=== PATIENT | male | born 1965 | race Caucasian/White ===

== ENCOUNTER 2017-02-24 08:37 | Inpatient (IN) | payer MEDICAID, OTHER ==
[~2017-02-24] VITALS: Ht 165.1 cm; Wt 147.4 kg
[~2017-02-24 08:37] MED LIST: AMLO5TAB2 PO; ASPI81TA31 PO; HYDR-3326 PO; Metoprolol Tartrate PO
[2017-02-24] MEDS ORDERED: NEOMY/BACITRA/POLYMYXIN B OINT UD PACKET TP ONE ×2 (09:00→09:27)
[2017-02-24] MEDS ORDERED: LOSARTAN POTASSIUM 25 MG TABLET PO SCH (09:00)
[2017-02-24] MEDS ORDERED: VANCOMYCIN IV 1,000 MG in IV DEXTROSE 5% 250 ML IV ONE (09:30)
[2017-02-24 09:31] LABS: CREATININE 1.2 mg/dL (0.6-1.3); POTASSIUM 3.4 mmol/L (3.5-5.1)
[2017-02-24 09:38] LABS: BASOPHILS # (AUTO) 0.1 K/uL (0.0-8.0); BASOPHILS % (AUTO) 0.9 % (0.0-2.0); EOSINOPHILS # (AUTO) 0.2 K/uL (0.0-0.7); EOSINOPHILS % (AUTO) 2.4 % (0.0-7.0); HEMATOCRIT 44.7 % (40-50); HEMOGLOBIN 14.9 G/DL (14.0-18.0); LYMPHOCYTES # (AUTO) 1.8 K/UL (0.8-4.8); LYMPHOCYTES % (AUTO) 24.6 % (20.5-51.5); MEAN CORPUSCULAR HEMOGLOBIN 27.9 UUG (27.0-31.0); MEAN CORPUSCULAR HGB CONC 33 g/dL (32.0-37.0); MONOCYTES # (AUTO) 0.9 K/UL (0.1-1.30); MONOCYTES % (AUTO) 12.9 % (0.0-11.0); NEUTROPHILS # (AUTO) 4.2 K/UL (1.8-8.9); NEUTROPHILS % (AUTO) 59.2 % (38.5-71.5); PLATELET COUNT (AUTO) 255 K/UL (150-450); RED BLOOD CELL COUNT(AUTO) 5.32 MIL/UL (4.7-6.1); WHITE BLOOD COUNT (AUTO) 7.3 K/UL (4.0-11.2)
[2017-02-24 09:42] LABS: BILIRUBIN,DIRECT 0.1 mg/dL (0.0-0.2); BILIRUBIN,TOTAL 0.4 mg/dL (0.2-1.0); TOTAL PROTEIN, SERUM 7.1 g/dL (6.4-8.2)
[2017-02-24] MEDS ORDERED: VANCOMYCIN IV 200 ML ONE (09:44)
[2017-02-24] MEDS ORDERED: LABETALOL HCL 100 MG/20 ML VIAL IV STA (12:15)
--- NOTE | 2017-02-24 12:26 | NUR ---
pt transfered to floor in stable condition. transfered delayed to maintaing safe bp for transfer
[2017-02-24 13:00] VITALS: BP 147/103
[2017-02-24] MEDS ORDERED: HYDROCODONE/APAP 5-325MG TABLET PO PRN (14:00)
[2017-02-24] MEDS ORDERED: ZOLPIDEM 5 MG TABLET PO PRN (14:00)
[2017-02-24] MEDS ORDERED: ACETAMINOPHEN 325 MG TABLET PO PRN (14:00)
[2017-02-24] MEDS ORDERED: MAGNESIUM HYDROXIDE 30 ML LIQUID UDC PO PRN (14:00)
[2017-02-24] MEDS ORDERED: ONDANSETRON 4 MG/2 ML VIAL IV PRN (14:00)
[2017-02-24] MEDS ORDERED: MORPHINE SULFATE 2 MG/1 ML DISP.SYRIN IV PRN (14:00)
--- NOTE | 2017-02-24 15:18 | NUR ---
CLINICAL PHARMACY NOTE:VANCOMYCIN DOSING Request for vancomycin dosing on 51 y/o male 325lbs for cellulitis of legs Temp 98.8 BUN 14 Scr 1.2 WBC 7.3 received 1gm vancomycin in ER at 0932 Continue vancomycin 1500mg ivpb q12h estimated trough 15. Trough level ordered prior to 4th dose of 1500mg on 02/26. Will continue to monitor
[2017-02-24 15:33] VITALS: BP 184/109
--- NOTE | 2017-02-24 15:40 | NUR ---
PT'S BP 184/109, PER DR. FONG GIVE CLONIDINE 0.1 Q6H PRN FOR SBP >150
[2017-02-24] MEDS: CLONIDINE HCL 0.1 MG TABLET PO PRN (16:02)
[2017-02-24 19:00] VITALS: BP 180/119
--- NOTE | 2017-02-24 19:26 | NUR ---
End of shift note: pt is laying in bed comfortably. No s/s of respiratory distress noted, no pain noted. PT has his bilateral legs on pillow for comfort, wound is open to air, kept clean, Iv intact/patent. All safety needs are met.
[2017-02-24 20:00] VITALS: BP 180/119
--- NOTE | 2017-02-24 20:00 | NUR ---
RN NOTES: PATIENT RECEIVED IN STABLE CONDITION, NO COMPLAINS OF PAIN OR DISTRESS NOTED. WILL CONTINUE TO MONITOR.
[2017-02-24] MEDS: AMLODIPINE 5 MG TABLET PO SCH (20:40)
[2017-02-24] MEDS: METOPROLOL TARTRATE 50 MG TABLET PO SCH (20:40)
[2017-02-24] MEDS ORDERED: ENOXAPARIN SODIUM 40 MG/0.4 ML DISP.SYRIN SQ SCH (21:00)
[2017-02-24] MEDS: VANCOMYCIN IV 1,500 MG in IV DEXTROSE 5% 500 ML IV SCH (21:21)
[2017-02-25 00:03] VITALS: BP 151/105
[2017-02-25 01:30] VITALS: BP 145/94
[2017-02-25] MEDS: CLONIDINE HCL 0.1 MG TABLET PO PRN (02:09)
--- NOTE | 2017-02-25 02:10 | NUR ---
RN NOTES: PATIENT IS COMPLAINING OF DISCOMFORT IN THE CHEST.PATIENT'S BP:151/105 MMHG, HR:74 B/MIN,RR:20 B/MIN,O2 SAT:97%. EKG IS NEGATIVE .CATAPRES 0.1 MG IS GIVEN FOR THE ELEVATED BLOOD PRESSURE AND MORPHINE 2 MG ARE GIVEN UPON PATIENT'S REQUEST.CHARGE NURSE IS AWARE. 03:00 PATIENT IS RESTING DENIES ANY PAIN OR DISCOMFORT.TRPONIN TEST IS NEGATIVE, CHARGE NURSE IS AWARE. WILL CONTINUE TO MONITOR.
[2017-02-25 04:00] VITALS: BP 145/102
--- NOTE | 2017-02-25 06:52 | NUR ---
RN NOTES; PATIENT IS IN A STABLE CONDITION. NO COMPLAINS OF PAIN OR ACUTE DISTRESS NOTED. WILL ENDORSE IT TO AM SHIFT NURSE TO CONTINUE THE CARE.
[2017-02-25] MEDS ORDERED: PANTOPRAZOLE SODIUM 40 MG TABLET.DR PO SCH (07:00)
[2017-02-25 07:27] LABS: THYROID STIMULATING HORMONE 1.843 mIU/mL (0.358-3.740)
[2017-02-25 07:56] LABS: BILIRUBIN,TOTAL 0.3 mg/dL (0.2-1.0); CREATININE 1.3 mg/dL (0.6-1.3); MAGNESIUM 2.2 mg/dL (1.8-2.4); PHOSPHOROUS 3.6 mg/dL (2.5-4.9); POTASSIUM 3.5 mmol/L (3.5-5.1); TOTAL PROTEIN, SERUM 6.9 g/dL (6.4-8.2)
[2017-02-25 08:07] LABS: BASOPHILS # (AUTO) 0.1 K/uL (0.0-8.0); BASOPHILS % (AUTO) 0.8 % (0.0-2.0); EOSINOPHILS # (AUTO) 0.3 K/uL (0.0-0.7); HEMATOCRIT 44.8 % (40-50); HEMOGLOBIN 14.7 G/DL (14.0-18.0); LYMPHOCYTES # (AUTO) 2.4 K/UL (0.8-4.8); LYMPHOCYTES % (AUTO) 28.7 % (20.5-51.5); MEAN CORPUSCULAR HEMOGLOBIN 27.9 UUG (27.0-31.0); MEAN CORPUSCULAR HGB CONC 33 g/dL (32.0-37.0); MEAN CORPUSCULAR VOLUME 85.2 FL (82.0-92.0); MONOCYTES % (AUTO) 11.9 % (0.0-11.0); NEUTROPHILS # (AUTO) 4.5 K/UL (1.8-8.9); NEUTROPHILS % (AUTO) 54.6 % (38.5-71.5); PLATELET COUNT (AUTO) 246 K/UL (150-450); RED BLOOD CELL COUNT(AUTO) 5.26 MIL/UL (4.7-6.1); WHITE BLOOD COUNT (AUTO) 8.3 K/UL (4.0-11.2)
[2017-02-25] MEDS: METOPROLOL TARTRATE 50 MG TABLET PO SCH (08:15)
[2017-02-25] MEDS: AMLODIPINE 5 MG TABLET PO SCH (08:16)
[2017-02-25] MEDS: VANCOMYCIN IV 1,500 MG in IV DEXTROSE 5% 500 ML IV SCH (08:54)
[2017-02-25] MEDS ORDERED: ASPIRIN 81 MG TAB.CHEW PO SCH (09:00)
[2017-02-25] MEDS ORDERED: HYDROCHLOROTHIAZIDE 12.5 MG CAPSULE PO SCH (09:00)
[2017-02-25] MEDS ORDERED: LOSARTAN POTASSIUM 25 MG TABLET PO SCH (09:00)
[2017-02-25] MEDS ORDERED: METOPROLOL TARTRATE 25 MG TABLET PO ONE (11:20)
[2017-02-25] MEDS ORDERED: POTASSIUM CHLORIDE 20 MEQ TAB.PRT.SR PO ONE (11:30)
[2017-02-25 11:31] VITALS: BP 130/85
--- NOTE | 2017-02-25 13:03 | NUR ---
WOUND CARE CONSULT: PT PRESENTS WITH REDNESS TO BILATERAL LOWER LEGS AND HEALED AREA TO LEFT LOWER LEG. PT STATES THAT HIS SKIN BREAKS OPEN EASILY. RECOMMEND PROTECT AREA WITH MEPILEX AND ELEVATE LEGS. DISCUSSED WITH PT AND NURSING STAFF. WILL SEE PRN. CHATMAN IN AGREEMENT WITH PLAN OF CARE. Addendum: 02/25/17 at 1304 by KRISTOFER VEGA RN Amended: Links added.
--- NOTE | 2017-02-25 14:43 | NUR ---
CLINICAL PHARMACY NOTE:VANCOMYCIN DOSING To continue vancomycin dosing on 51 y/o male 325lbs for cellulitis of legs Temp 98 BUN 14 Scr 1.3 WBC 8.3 Continue vancomycin 1500mg ivpb q12h estimated trough 15. Trough level ordered prior to 4th dose of 1500mg on 02/26 @ 0830. Will check trough and adjust as appropriate. Will continue to monitor
[2017-02-25 15:13] VITALS: BP_SYST 130; BP_SYST 157; BP_DIAS 85; BP_DIAS 93
[2017-02-25] MEDS ORDERED: AMLO5TAB2 PO (17:17)
[2017-02-25] MEDS ORDERED: HYDR12.517 PO (17:17)
[2017-02-25] MEDS ORDERED: ASCO500C16 PO (17:17)
[2017-02-25] MEDS ORDERED: ZINC220C8 PO (17:17)
[2017-02-25] MEDS ORDERED: METO50TA3 PO (17:17)
[2017-02-25] MEDS ORDERED: SIMV20TA6 PO (17:17)
[2017-02-25] MEDS ORDERED: SULF1TAB48 PO (17:17)
[2017-02-25] MEDS ORDERED: ASPI81TA31 PO (17:17)
--- NOTE | 2017-02-25 17:47 | NUR ---
DISCHARGE NOTE: PT IS READY TO BE D/C, PT REFUSED PICTURES, EDUCATION FROM PHARMACIST. NO S/S OF RESPIRATORY DISTRESS NOTED, NO PAIN NOTED. PT LEFT VIA PRIVATE CAR WITH FRIEND, WOUND CARE IS DONE. EDUCATION PROVIDED.
[2017-02-25] MEDS ORDERED: METOPROLOL TARTRATE 50 MG TABLET PO SCH (21:00)
[2017-02-25] MEDS ORDERED: SIMVASTATIN 20 MG TABLET PO SCH (21:00)
== END 2017-02-25 17:45 | disposition home or self-care (01) | DRG 194 ==
LOC: ER 08:37 → TELE 11:56
PROVIDERS: ADMIT Internal Medicine; ATTEND Internal Medicine
DX: I11.0 Hypertensive heart disease with heart failure (principal); L03.115 Cellulitis of right lower limb; Z68.43 Body mass index [BMI] 50.0-59.9, adult; L03.116 Cellulitis of left lower limb; E66.01 Morbid (severe) obesity due to excess calories; I73.9 Peripheral vascular disease, unspecified; I50.32 Chronic diastolic (congestive) heart failure; Z88.0 Allergy status to penicillin; Z87.891 Personal history of nicotine dependence; I87.2 Venous insufficiency (chronic) (peripheral); R60.0 Localized edema; E87.6 Hypokalemia; R73.03 Prediabetes; B96.89 Other specified bacterial agents as the cause of diseases classified elsewhere
CPT/HCPCS: 36415; 70030-TC; 71010; 83735; 84100; 84443; 85025; 85730; 93005; 93307; 97161; A4663; J1650; J2270; J3370; J3490; J7050; J7060

== ENCOUNTER 2017-05-01 11:09 | Emergency (ER) | payer OTHER ==
[~2017-05-01] VITALS: Ht 162.6 cm; Wt 129.7 kg
[~2017-05-01 11:09] MED LIST changes: +ASCO500C16 PO; -HYDR-3326 PO; +HYDR12.517 PO; +METO50TA3 PO; -Metoprolol Tartrate PO; +SIMV20TA6 PO; +SULF1TAB48 PO; +ZINC220C8 PO
--- NOTE | 2017-05-01 11:40 | NUR ---
MSE DONE BY Kiara ACOSTA AT BEDSIDE.
[2017-05-01] MEDS ORDERED: HYDROCODONE/APAP 10-325 MG TABLET PO ONE (11:45)
[2017-05-01] MEDS ORDERED: CLINDAMYCIN HCL 150 MG CAPSULE PO ONE (11:45)
[2017-05-01] MEDS ORDERED: KETOROLAC TROMETHAMINE 30 MG INJ IM ONE (11:45)
[2017-05-01] MEDS ORDERED: CLINDAMYCIN HCL 150 MG CAPSULE ONE (11:55)
[2017-05-01] MEDS ORDERED: HYDROCODONE/APAP 10-325 MG TABLET ONE (11:55)
[2017-05-01] MEDS ORDERED: KETOROLAC TROMETHAMINE 30 MG INJ ONE (11:55)
--- NOTE | 2017-05-01 12:07 | NUR ---
Patient discharged to home in stable conditon. Written and verbal after care instructions given. Patient verbalizes understanding of instructions.
[2017-05-01 12:08] VITALS: BP 146/86
== END 2017-05-01 12:11 | disposition home or self-care (01) ==
LOC: ER 11:09
DX: K02.9 Dental caries, unspecified (principal); I10 Essential (primary) hypertension; Z88.0 Allergy status to penicillin; Z79.82 Long term (current) use of aspirin
CPT/HCPCS: 96372; 99283; A4663; J1885

== ENCOUNTER 2017-07-15 17:49 | Emergency (ER) | payer OTHER ==
[~2017-07-15] VITALS: Ht 165.1 cm; Wt 124.7 kg
--- NOTE | 2017-07-15 17:56 | NUR ---
Samantha bagley in ED - 07/15/17 at 1757 by TETE VU RENDON FOR PSYCH EVAL.
[2017-07-15] MEDS ORDERED: TDAP DIPH,PERTUSS,TET VAC/PF 0.5 ML DISP.SYRIN IM ONE ×2 (19:15→20:19)
[2017-07-15] MEDS ORDERED: NEOMY/BACITRA/POLYMYXIN B OINT UD PACKET TP ONE ×2 (19:15→20:19)
--- NOTE | 2017-07-15 19:16 | NUR ---
Received report from BERONICA Rouse. Assumed care of pt at this time. Pt resting in position of comfort for self. Family at bedside.
--- NOTE | 2017-07-15 20:37 | NUR ---
pt to ct via [place]
--- NOTE | 2017-07-15 20:59 | NUR ---
Pt [place]. Pt c/o severe BLE pain. Dr. Cabral notified of pt's pain and pt's blood pressure. Awaiting further orders.
[2017-07-15] MEDS ORDERED: ONDANSETRON ODT 4 MG TAB.RAPDIS SL ONE (21:30)
[2017-07-15] MEDS ORDERED: HYDROCODONE/APAP 10-325 MG TABLET PO ONE (21:30)
[2017-07-15] MEDS ORDERED: ONDANSETRON ODT 4 MG TAB.RAPDIS ONE (21:45)
[2017-07-15] MEDS ORDERED: HYDROCODONE/APAP 10-325 MG TABLET ONE (21:45)
--- NOTE | 2017-07-15 21:46 | NUR ---
Pt stable for discharge per Dr. Cabral. Pt given ACI. Pt verbalized understanding of dc instructions. Pt ambulated out of ER with steady gait and ride home.
[2017-07-15 21:48] VITALS: BP 176/86
== END 2017-07-15 21:49 | disposition home or self-care (01) ==
LOC: ER 17:50
DX: S80.212A Abrasion, left knee, initial encounter (principal); R51 Headache; M25.512 Pain in left shoulder; M79.605 Pain in left leg; I10 Essential (primary) hypertension; E78.5 Hyperlipidemia, unspecified; I25.10 Atherosclerotic heart disease of native coronary artery without angina pectoris; I73.9 Peripheral vascular disease, unspecified; Z79.82 Long term (current) use of aspirin; Z88.0 Allergy status to penicillin; F17.200 Nicotine dependence, unspecified, uncomplicated; W18.30XA Fall on same level, unspecified, initial encounter; Y93.89 Activity, other specified; Y92.89 Other specified places as the place of occurrence of the external cause; Y99.8 Other external cause status
CPT/HCPCS: 70450; 73030; 73564; 73590; 90471; 90715; 99284; A4663; Q0162

== ENCOUNTER 2017-09-15 18:54 | Emergency (ER) | payer OTHER ==
[~2017-09-15] VITALS: Ht 167.6 cm; Wt 127.0 kg
[~2017-09-15 18:54] MED LIST changes: +METO50TA16 PO; -METO50TA3 PO; -SULF1TAB48 PO
[2017-09-15] MEDS ORDERED: LEVOFLOXACIN 750 MG TABLET PO ONE (19:30)
[2017-09-15] MEDS ORDERED: CLINDAMYCIN PHOSPHATE IV 600 MG in IV DEXTROSE 5% 100 ML IV ONE (19:30)
[2017-09-15] MEDS ORDERED: CLINDAMYCIN PHOSPHATE 600 MG/4 ML VIAL ONE (19:58)
[2017-09-15 20:00] LABS: CREATININE 1.1 mg/dL (0.6-1.3); POTASSIUM 3.6 mmol/L (3.5-5.1)
[2017-09-15 20:01] LABS: BASOPHILS # (AUTO) 0.1 K/uL (0.0-8.0); BASOPHILS % (AUTO) 1.2 % (0.0-2.0); EOSINOPHILS # (AUTO) 0.1 K/uL (0.0-0.7); EOSINOPHILS % (AUTO) 2.3 % (0.0-7.0); HEMATOCRIT 49.1 % (36.7-47.1); HEMOGLOBIN 16.9 g/dL (12.5-16.3); LYMPHOCYTES # (AUTO) 1.2 K/uL (20.0-40.0); LYMPHOCYTES % (AUTO) 23.3 % (20.5-51.5); MEAN CORPUSCULAR HEMOGLOBIN 29.2 uug (23.8-33.4); MEAN CORPUSCULAR HGB CONC 35 g/dL (32.5-36.3); MEAN CORPUSCULAR VOLUME 84.5 fL (73.0-96.2); MONOCYTES # (AUTO) 1.3 K/uL (2.0-10.0); MONOCYTES % (AUTO) 23.8 % (0.0-11.0); NEUTROPHILS # (AUTO) 2.6 K/uL (1.8-8.9); NEUTROPHILS % (AUTO) 49.4 % (38.5-71.5); PLATELET COUNT (AUTO) 241 K/uL (152-348); RED BLOOD CELL COUNT(AUTO) 5.81 MIL/uL (4.06-5.63); WHITE BLOOD COUNT (AUTO) 5.3 K/uL (3.6-10.2)
[2017-09-15 20:12] LABS: BILIRUBIN,DIRECT 0.1 mg/dL (0.0-0.2); BILIRUBIN,TOTAL 0.3 mg/dL (0.2-1.0); TOTAL PROTEIN, SERUM 7.7 g/dL (6.4-8.2)
[2017-09-15] MEDS ORDERED: LEVOFLOXACIN 750 MG TABLET ONE (21:17)
[2017-09-15 21:21] LABS: BAND % (MANUAL) 10 % (0-10); EOSINOPHILS % (MANUAL) 1 % (0-8); LYMPHOCYTES % (MANUAL) 23 % (20-40); MONOCYTES % (MANUAL) 24 % (2-10); NEUTROPHILS % (MANUAL) 42 % (42-75)
--- NOTE | 2017-09-15 22:16 | NUR ---
Patient discharged to home in stable conditon. Written and verbal after care instructions given. Patient verbalizes understanding of instructions.
== END 2017-09-15 22:17 | disposition home or self-care (01) ==
LOC: ER 18:54
DX: J11.00 Influenza due to unidentified influenza virus with unspecified type of pneumonia (principal); I10 Essential (primary) hypertension; Z91.14 Patient's other noncompliance with medication regimen; F17.200 Nicotine dependence, unspecified, uncomplicated; E78.5 Hyperlipidemia, unspecified; Z79.82 Long term (current) use of aspirin; Z88.0 Allergy status to penicillin
CPT/HCPCS: 36415; 70030-TC; 71045; 83605; 85025; 85730; 87040; 87400; 93005; A4663; J3490; J7030; J7060

== ENCOUNTER 2017-11-11 03:20 | Emergency (ER) | payer OTHER ==
[~2017-11-11] VITALS: Ht 165.1 cm; Wt 124.7 kg
[2017-11-11] MEDS ORDERED: CLONIDINE HCL 0.2 MG TABLET PO ONE ×2 (04:45→06:45)
[2017-11-11] MEDS ORDERED: CLONIDINE HCL 0.2 MG TABLET ONE ×2 (05:00→06:51)
[2017-11-11 05:26] LABS: BASOPHILS # (AUTO) 0.1 K/uL (0.0-8.0); BASOPHILS % (AUTO) 1.4 % (0.0-2.0); EOSINOPHILS # (AUTO) 0.2 K/uL (0.0-0.7); HEMATOCRIT 43.5 % (36.7-47.1); HEMOGLOBIN 14.6 g/dL (12.5-16.3); LYMPHOCYTES # (AUTO) 2.3 K/uL (20.0-40.0); LYMPHOCYTES % (AUTO) 27.9 % (20.5-51.5); MEAN CORPUSCULAR HEMOGLOBIN 28.2 uug (23.8-33.4); MEAN CORPUSCULAR HGB CONC 34 g/dL (32.5-36.3); MONOCYTES # (AUTO) 1.2 K/uL (2.0-10.0); MONOCYTES % (AUTO) 13.8 % (0.0-11.0); NEUTROPHILS # (AUTO) 4.6 K/uL (1.8-8.9); NEUTROPHILS % (AUTO) 54.9 % (38.5-71.5); PLATELET COUNT (AUTO) 245 K/uL (152-348); RED BLOOD CELL COUNT(AUTO) 5.18 MIL/uL (4.06-5.63); WHITE BLOOD COUNT (AUTO) 8.4 K/uL (3.6-10.2)
--- NOTE | 2017-11-11 05:39 | NUR ---
ERON AT BS .
[2017-11-11 05:50] LABS: BILIRUBIN,DIRECT 0.1 mg/dL (0.0-0.2); BILIRUBIN,TOTAL 0.4 mg/dL (0.2-1.0); CREATININE 1.2 mg/dL (0.6-1.3); POTASSIUM 3.7 mmol/L (3.5-5.1); TOTAL PROTEIN, SERUM 7.2 g/dL (6.4-8.2)
--- NOTE | 2017-11-11 07:11 | NUR ---
Patient discharged to home in stable conditon. Written and verbal after care instructions given. Patient verbalizes understanding of instructions.IVF REMOVED PRESSURE DRESSING APPLIED NO BLEEDING FROM THE SITE , WENT HOME,VERBALIZED UNDERSTANDING WITH REGARDS TO D/C INSTRUCTIONS .WENT HOME WITH A FRIEND .
[2017-11-11 07:14] VITALS: BP 150/85
== END 2017-11-11 07:21 | disposition home or self-care (01) ==
LOC: ER 04:12
DX: R04.0 Epistaxis (principal); I10 Essential (primary) hypertension; F17.210 Nicotine dependence, cigarettes, uncomplicated; Z90.89 Acquired absence of other organs; Z88.0 Allergy status to penicillin
CPT/HCPCS: 36415; 70030-TC; 71045; 85025; 85730; 93005; A4663

== ENCOUNTER 2018-01-26 09:17 | Emergency (ER) | payer SELFPAY ==
[~2018-01-26] VITALS: Ht 162.6 cm; Wt 129.3 kg
[2018-01-26] MEDS ORDERED: LABETALOL HCL 100 MG/20 ML VIAL IV ONE (09:24)
[2018-01-26] MEDS ORDERED: LABETALOL HCL 100 MG/20 ML VIAL ONE (09:28)
[2018-01-26] MEDS ORDERED: HYDR25TA4 PO (09:28)
[2018-01-26] MEDS ORDERED: ASPI81TA31 PO (09:28)
[2018-01-26] MEDS ORDERED: AMLO5TAB2 PO (09:28)
[2018-01-26] MEDS ORDERED: CYCL5TAB PO (09:28)
[2018-01-26] MEDS ORDERED: METO50TA16 PO (09:28)
[2018-01-26] MEDS ORDERED: IV NORMAL SALINE 500 ML IV ONE (09:30)
[2018-01-26 10:08] LABS: BASOPHILS # (AUTO) 0.1 K/uL (0.0-8.0); BASOPHILS % (AUTO) 0.9 % (0.0-2.0); EOSINOPHILS # (AUTO) 0.1 K/uL (0.0-0.7); EOSINOPHILS % (AUTO) 2.5 % (0.0-7.0); HEMATOCRIT 43.8 % (36.7-47.1); HEMOGLOBIN 14.9 g/dL (12.5-16.3); LYMPHOCYTES # (AUTO) 1.4 K/uL (20.0-40.0); MEAN CORPUSCULAR HEMOGLOBIN 28.7 uug (23.8-33.4); MEAN CORPUSCULAR HGB CONC 34 g/dL (32.5-36.3); MEAN CORPUSCULAR VOLUME 84.5 fL (73.0-96.2); MONOCYTES # (AUTO) 0.7 K/uL (2.0-10.0); MONOCYTES % (AUTO) 11.6 % (0.0-11.0); NEUTROPHILS # (AUTO) 3.6 K/uL (1.8-8.9); PLATELET COUNT (AUTO) 192 K/uL (152-348); RED BLOOD CELL COUNT(AUTO) 5.18 MIL/uL (4.06-5.63); WHITE BLOOD COUNT (AUTO) 5.9 K/uL (3.6-10.2)
[2018-01-26 10:12] LABS: CREATININE 1.4 mg/dL (0.6-1.3); POTASSIUM 3.5 mmol/L (3.5-5.1)
[2018-01-26 10:18] LABS: BILIRUBIN,TOTAL 0.4 mg/dL (0.2-1.0); TOTAL PROTEIN, SERUM 7.1 g/dL (6.4-8.2)
--- NOTE | 2018-01-26 10:29 | NUR ---
PT ARRIVED, CXR/EKG/MEDS ADMIN, MONITOR SHOWS NSR, MO3=952% ON 4L O2/NC. PT RESTING, LEBETOLOL IV ADMIN EARLIER, BP AT THIS TIME IS 176/106, HR=87, RR=18. PT SIG OTHER AT THE BEDSIDE, POISON CONTROL CALLED EARLIER. PT ARRIVED WITH 18G TO RT HAND, 500ML 0.9NS BOLUS STARTED AT 1028 TO RT HAND.
--- NOTE | 2018-01-26 12:06 | NUR ---
MSE COMPLETED, IV D/C'D INTACT. PT D/C'D HOME, ACI GIVEN, PT SIG OTHER PRESENT, PT AMBULATED W/O DIFF/TOOK ALL BELONGINGS.
[2018-01-26 12:07] VITALS: BP 169/102
== END 2018-01-26 12:08 | disposition home or self-care (01) ==
LOC: ER 09:18
DX: Z77.098 Contact with and (suspected) exposure to other hazardous, chiefly nonmedicinal, chemicals (principal); Z91.19 Patient's noncompliance with other medical treatment and regimen; R94.31 Abnormal electrocardiogram [ECG] [EKG]; I10 Essential (primary) hypertension; R74.8 Abnormal levels of other serum enzymes; F17.200 Nicotine dependence, unspecified, uncomplicated; E66.01 Morbid (severe) obesity due to excess calories; Z88.0 Allergy status to penicillin; Z79.82 Long term (current) use of aspirin
CPT/HCPCS: 36415; 70030-TC; 71045; 85025; 93005; A4663; J3490; J7040

== ENCOUNTER 2018-12-06 14:04 | Emergency (ER) | payer MEDICAID ==
[~2018-12-06] VITALS: Ht 165.1 cm; Wt 124.7 kg
[~2018-12-06 14:04] MED LIST changes: -AMLO5TAB2 PO; +AMLO5TAB9 PO; -ASCO500C16 PO; +CYCL5TAB PO; -HYDR12.517 PO; +HYDR25TA4 PO; -SIMV20TA6 PO; -ZINC220C8 PO
--- NOTE | 2018-12-06 14:37 | NUR ---
PT IS IN ROOM #2B. DR STERLING EVALUATED THE PT.
[2018-12-06] MEDS ORDERED: CLONIDINE HCL 0.2 MG TABLET PO ONE (15:00)
[2018-12-06] MEDS ORDERED: CLONIDINE HCL 0.2 MG TABLET ONE (15:47)
--- NOTE | 2018-12-06 16:24 | NUR ---
PT WAS D/C'd TO HOME. D/C INSTRUCTIONS GIVEN TO THE PT.
[2018-12-06 16:26] VITALS: BP 135/72
== END 2018-12-06 16:43 | disposition home or self-care (01) ==
LOC: ER 14:04
DX: L08.9 Local infection of the skin and subcutaneous tissue, unspecified (principal); M79.675 Pain in left toe(s); R10.33 Periumbilical pain; I10 Essential (primary) hypertension; E78.00 Pure hypercholesterolemia, unspecified; F17.200 Nicotine dependence, unspecified, uncomplicated; Z88.0 Allergy status to penicillin; Z79.82 Long term (current) use of aspirin; Z79.899 Other long term (current) drug therapy
CPT/HCPCS: 73630; A4663

== ENCOUNTER 2019-06-10 20:41 | Emergency (ER) | payer MEDICAID ==
[~2019-06-10] VITALS: Ht 172.7 cm; Wt 130.2 kg
--- NOTE | 2019-06-10 21:19 | NUR ---
Dr. cabrera in patient room at bedside.
[2019-06-10] MEDS: CLONIDINE HCL 0.2 MG TABLET PO ONE (21:44)
[2019-06-10] MEDS ORDERED: CLONIDINE HCL 0.2 MG TABLET ONE (21:48)
[2019-06-10] MEDS: HYDROCODONE/APAP 10-325 MG TABLET PO ONE (21:50)
--- NOTE | 2019-06-10 21:52 | NUR ---
technology officer bedside
[2019-06-10] MEDS ORDERED: HYDROCODONE/APAP 10-325 MG TABLET ONE (21:54)
--- NOTE | 2019-06-10 22:38 | NUR ---
Dr. Tanner in patients room and is aware of current BP of 212/118
--- NOTE | 2019-06-10 23:25 | NUR ---
Patient does not wish to proceed with medical care recommended by . Patient given information related to possible complications, up to and including , which could occur as a result of leaving the hospital at this time. Patient verbalizes understanding of risks involved due to leaving against medical advice. Patient has signed AMA form. all personal belongings taken with the patient prior to discharge.
[2019-06-10 23:28] VITALS: BP 146/114
== END 2019-06-10 23:15 | disposition left against medical advice (07) ==
LOC: ER 20:41
DX: S91.105A Unspecified open wound of left lesser toe(s) without damage to nail, initial encounter (principal); I10 Essential (primary) hypertension; E78.00 Pure hypercholesterolemia, unspecified; F17.200 Nicotine dependence, unspecified, uncomplicated; Z88.0 Allergy status to penicillin; Z79.82 Long term (current) use of aspirin; Z79.899 Other long term (current) drug therapy; X58.XXXA Exposure to other specified factors, initial encounter; Y93.89 Activity, other specified; Y92.89 Other specified places as the place of occurrence of the external cause; Y99.8 Other external cause status
CPT/HCPCS: 73630; A4663

== ENCOUNTER 2021-07-09 19:58 | Emergency (ER) | payer MEDICAID ==
[~2021-07-09 19:58] MED LIST changes: +AMLO-212 PO; -AMLO5TAB9 PO
--- NOTE | 2021-07-09 20:08 | NUR ---
PATIENT WAS CALLED TO BE TRIAGED BUT WAS NOT PRESENT IN THE [employer] ROOM OR OUTSIDE OF ER.
--- NOTE | 2021-07-09 20:15 | NUR ---
Patient was called to be triaged but was not present in the waiting room or outside of ER.
--- NOTE | 2021-07-09 20:30 | NUR ---
Patient was called to be triaged but was not present in the waiting room or outside of ER. Patient was amol triaged or seen by ERMD.
== END 2021-07-09 20:30 | disposition left against medical advice (07) ==
LOC: ER 20:01
DX: Z53.21 Procedure and treatment not carried out due to patient leaving prior to being seen by health care provider (principal)